=== PATIENT | male | born 1965 | race Caucasian/White ===

== ENCOUNTER 2018-03-17 21:15 | Emergency (ER) | payer OTHER ==
--- NOTE | 2018-03-17 21:24 | ER Report ---
History and Physical Time Seen By MD: 21:23 HPI/ROS CHIEF COMPLAINT: Chest pain and shortness of breath HISTORY OF PRESENT ILLNESS: This is a 52-year-old male. He has been having some chest pressure starting earlier today. It radiates to his shoulder on the left side and up into the jaw and neck on the right side. It's in the substernal area. He has a little bit of shortness of breath associated with this but no cough or fevers. This came on at rest. It doesn't really change with activity or rest. He denies any abdominal pain. He has not really felt like he is having much in the way of reflux or acid symptoms today. He has had a little bit of nausea. No problem with abdominal pain, bowel changes, or urinary changes. Allergies: Coded Allergies: No Known Drug Allergies (Unverified , 03/17/18) Home Meds Reported Medications Magnesium Oxide (Magnesium) 400 Mg Tablet 03/17/18 Multivitamin (MEN'S MULTI-VITAMIN) 1 Each Tablet, 1 EACH PO DAILY 03/17/18 Glucosamine Sulfate 2KCL (GLUCOSAMINE) 1,000 Mg Tablet, 1000 MG PO BID 03/17/18 Turmeric (CURCUMIN) 1 Gm Powder, 1 GM MC 03/17/18 Testosterone Cypionate (TESTOSTERONE CYPIONATE) 200 Mg/1 Ml Vial, 200 MG IM, VIAL 03/17/18 Famotidine (FAMOTIDINE) 20 Mg Tablet, 20 MG PO BID, TAB 03/17/18 Tadalafil (CIALIS) 5 Mg Tablet, 5 MG PO QDAY 03/17/18 Sulfamethoxazole/Trimethoprim (SULFAMETHOXAZOLE-TMP DS TABLET) 1 Each Tablet, 1 TAB PO Q12H 03/17/18 Past Medical/Surgical History History of pancreatitis and some gastroesophageal reflux disease. History of cholecystectomy and history of laminectomy. Reviewed Nurses Notes: Yes Constitutional Vital Sign - Last 24 Hours 03/17/18 03/17/18 03/17/18 03/17/18 21:20 21:21 21:30 21:45 Temp 98.5 Pulse 84 81 70 Resp 16 9 13 B/P (MAP) 169/117 (134) 169/117 170/93 (118) Pulse Ox 92 94 92 O2 Delivery Room Air 03/17/18 03/17/18 03/17/18 22:00 22:15 22:30 Pulse 72 71 Resp 13 11 B/P (MAP) 139/91 (107) 135/83 (100) Pulse Ox 90 92 Physical Exam General Appearance: The patient is alert. No acute distress. Eyes: Pupils are equal, round. No pallor, injection or icterus. ENT: Mucous membranes are moist. Normal oral mucosa. Posterior oropharynx is normal. Neck: Supple and non tender. No lymphadenopathy. Respiratory: Lungs are clear to auscultation. Cardiovascular: Regular rate and rhythm. No murmurs, gallops or rubs. Normal capillary refill. No edema. Gastrointestinal: Abdomen is soft, nontender. He does have some gurgling sounds from the esophagus when listening over the chest. Nondistended. Normal active bowel sounds. No costovertebral angle tenderness with percussion. Neurological: Alert and oriented x3. Skin: Warm and dry. No rashes. Musculoskeletal: Extremities are nontender. No chest wall tenderness. No tenderness with palpation of the spine. DIFFERENTIAL DIAGNOSIS: After history and physical exam, differential diagnosis was considered for chest pain including but not limited to myocardial ischemia, pericarditis pulmonary embolus, chest wall pain, pleural inflammation and pulmonary infectious causes. Medical Decision Making Data Points Result Diagram: 03/17/18212503/17/182125 Laboratory Hematology Test 03/17/18 21:26 Red Blood Count 5.81 M/uL (4.00-5.60) Mean Corpuscular Volume 94.4 fL (80.0-96.0) Mean Corpuscular Hemoglobin 34.3 pg (26.0-33.0) Mean Corpuscular Hemoglobin Concent 36.4 g/dL (32.0-36.0) Red Cell Distribution Width 13.5 % (11.5-14.5) Mean Platelet Volume 9.0 fL (7.2-11.1) Neutrophils (%) (Auto) 42.1 % (39.4-72.5) Lymphocytes (%) (Auto) 45.5 % (17.6-49.6) Monocytes (%) (Auto) 9.4 % (4.1-12.4) Eosinophils (%) (Auto) 2.4 % (0.4-6.7) Basophils (%) (Auto) 0.6 % (0.3-1.4) Nucleated RBC Relative Count (auto) 0.2 /100WBC Neutrophils # (Auto) 4.2 K/uL (2.0-7.4) Lymphocytes # (Auto) 4.5 K/uL (1.3-3.6) Monocytes # (Auto) 0.9 K/uL (0.3-1.0) Eosinophils # (Auto) 0.2 K/uL (0.0-0.5) Basophils # (Auto) 0.1 K/uL (0.0-0.1) Nucleated RBC Absolute Count (auto) 0.02 K/uL D-Dimer Quantitative (PE/DVT) < 0.27 ug/ml (0-0.50) Sodium Level 138 mmol/L (137-145) Potassium Level 3.9 mmol/L (3.5-5.0) Chloride Level 97 mmol/L (98-107) Carbon Dioxide Level 30 mmol/L (22-30) Blood Urea Nitrogen 17 mg/dl (9-21) Creatinine 1.70 mg/dl (0.66-1.25) Glomerular Filtration Rate Calc 42.2 Random Glucose 96 mg/dl (75-110) Calcium Level 9.8 mg/dl (8.4-10.2) Total Bilirubin 0.8 mg/dl (0.2-1.3) Aspartate Amino Transf (AST/SGOT) 49 U/L (0-35) Alanine Aminotransferase (ALT/SGPT) 50 U/L (0-56) Alkaline Phosphatase 71 U/L (0-126) Troponin I < 0.012 ng/ml Total Protein 8.3 g/dl (6.3-8.2) Albumin 4.7 g/dl (3.5-5.0) Chemistry Test 03/17/18 21:26 White Blood Count 10.0 k/uL (4.5-11.0) Red Blood Count 5.81 M/uL (4.00-5.60) Hemoglobin 19.9 g/dL (14.0-18.0) Hematocrit 54.8 % (42.0-52.0) Mean Corpuscular Volume 94.4 fL (80.0-96.0) Mean Corpuscular Hemoglobin 34.3 pg (26.0-33.0) Mean Corpuscular Hemoglobin Concent 36.4 g/dL (32.0-36.0) Red Cell Distribution Width 13.5 % (11.5-14.5) Platelet Count 179 K/uL (150-450) Mean Platelet Volume 9.0 fL (7.2-11.1) Neutrophils (%) (Auto) 42.1 % (39.4-72.5) Lymphocytes (%) (Auto) 45.5 % (17.6-49.6) Monocytes (%) (Auto) 9.4 % (4.1-12.4) Eosinophils (%) (Auto) 2.4 % (0.4-6.7) Basophils (%) (Auto) 0.6 % (0.3-1.4) Nucleated RBC Relative Count (auto) 0.2 /100WBC Neutrophils # (Auto) 4.2 K/uL (2.0-7.4) Lymphocytes # (Auto) 4.5 K/uL (1.3-3.6) Monocytes # (Auto) 0.9 K/uL (0.3-1.0) Eosinophils # (Auto) 0.2 K/uL (0.0-0.5) Basophils # (Auto) 0.1 K/uL (0.0-0.1) Nucleated RBC Absolute Count (auto) 0.02 K/uL D-Dimer Quantitative (PE/DVT) < 0.27 ug/ml (0-0.50) Glomerular Filtration Rate Calc 42.2 Calcium Level 9.8 mg/dl (8.4-10.2) Total Bilirubin 0.8 mg/dl (0.2-1.3) Aspartate Amino Transf (AST/SGOT) 49 U/L (0-35) Alanine Aminotransferase (ALT/SGPT) 50 U/L (0-56) Alkaline Phosphatase 71 U/L (0-126) Troponin I < 0.012 ng/ml Total Protein 8.3 g/dl (6.3-8.2) Albumin 4.7 g/dl (3.5-5.0) Coagulation Test 03/17/18 21:26 D-Dimer Quantitative (PE/DVT) < 0.27 ug/ml EKG/Imaging EKG Interpretation 12 lead EKG: Rhythm: normal sinus rhythm, rate 74 [place]: normal QRS: normal ST segments: normal Imaging AP CHEST 03/17/2018 9:32 PM. INDICATION: Chest Pain COMPARISON: None. FINDINGS: Lungs are well-expanded. There is no consolidation. Mild bronchial wall thickening. No pleural effusion or pneumothorax. Heart size is normal. Cholecystectomy clips. IMPRESSION: Mild airways disease. Report Dictated By: Wander Mcmullen MD at 03/17/2018 10:12 PM ED Course/Re-evaluation Clinical Indication for ER IV: IV Access ED Course Patient given aspirin 81 mg 4 chewable. Chest x-ray and EKG as noted above. Labs are negative as well. Based on the gurgling that we here over the esophagus in the chest, this is likely going to be due to his reflux symptoms. Recommended using his famotidine as well as antiacids. Decision to Disposition Date: Mar 17, 2018 Decision to Disposition Time: 22:37 Depart Departure Latest Vital Signs Vital Signs Date Time Temp Pulse Resp B/P (MAP) Pulse Ox O2 Delivery O2 Flow Rate FiO2 03/17/18 22:30 71 11 135/83 (100) 92 03/17/18 21:21 98.5 Room Air Impression: Primary Impression: Chest pain Additional Impression: Reflux esophagitis Condition: Improved Disposition: HOME OR SELF-CARE Patient Instructions: Chest Pain (ED), Gastroesophageal Reflux Disease (ED) Additional Instructions: Keep taking your antacid medication, famotidine. You can also use Maalox, TUMs or other anti-acid medications. Problem Qualifiers Primary Impression: Chest pain Chest pain type: unspecified Qualified Codes: R07.9 - Chest pain, unspecified OSKAR GUZMAN MD Mar 17, 2018 21:24
[2018-03-17] MEDS ORDERED: MULT-1287 PO (21:29)
[2018-03-17] MEDS ORDERED: FAMO-67 PO (21:29)
[2018-03-17] MEDS ORDERED: TEST200V IM (21:29)
[2018-03-17] MEDS ORDERED: TURM1POW3 MC (21:29)
[2018-03-17] MEDS ORDERED: GLUC100026 PO (21:29)
[2018-03-17] MEDS ORDERED: SULF1TAB24 PO (21:29)
[2018-03-17] MEDS ORDERED: TADA5TAB7 PO (21:29)
[2018-03-17] MEDS ORDERED: MAGN400T10 (21:29)
[2018-03-17] MEDS ORDERED: ASPIRIN 81 MG CHEW PO ONE (21:35)
--- NOTE | 2018-03-17 21:37 | EKG ---
FACILITY: [facility] PATIENT NAME: FLORENCIO RATLIFF : [id number] MR: [id number] V: [id number] EXAM DATE: ORDERING PHYSICIAN: OSKAR GUZMAN TECHNOLOGIST: MEHRAN Navarro Reason : Chest Pain Blood Pressure : / mmHG Vent. Rate : 074 BPM Atrial Rate : 074 BPM P-R Int : 152 ms QRS Dur : 080 ms QT Int : 358 ms P-R-T Axes : 047 048 016 degrees QTc Int : 397 ms Normal sinus rhythm Normal ECG No previous ECGs available Confirmed by BIJAN HOPKINS ([id number]) on 03/18/2018 6:36:12 AM Referred By: Confirmed By:BIJAN HOPKINS
[2018-03-17 21:38] LABS: PLATELET COUNT, AUTOMATED 179 K/uL (150-450)
--- NOTE | 2018-03-17 22:18 | RADIOLOGY IMAGING REPORT ---
FACILITY: [facility] PATIENT NAME: Rj Louis : 1965 MR: [id number] V: [id number] EXAM DATE: ORDERING PHYSICIAN: OSKAR GUZMAN TECHNOLOGIST: Location: [facility] [place] Patient: Rj Louis : 1965 Visit/Account:[id number] Date of Sevice: 03/17/2018 AP CHEST 03/17/2018 9:32 PM. INDICATION: Chest Pain COMPARISON: None. FINDINGS: Lungs are well-expanded. There is no consolidation. Mild bronchial wall thickening. No pleural effu [place] or pneumothorax. Heart size is normal. Cholecystectomy clips. IMPRESSION: Mild airways disease. Report Dictated By: Wander Mcmullen MD at 03/17/2018 10:12 PM Report E-Signed By: Wander Mcmullen MD at 03/17/2018 10:13 PM WSN:[id number]
[2018-03-17 22:30] VITALS: BP 135/83
== END 2018-03-17 22:51 | disposition home or self-care (01) ==
LOC: ER 21:52
DX: K21.0 Gastro-esophageal reflux disease with esophagitis (principal); R07.9 Chest pain, unspecified; R06.02 Shortness of breath
CPT/HCPCS: 71045; 82040; 82247; 82310; 82374; 82435; 82565; 82947; 84075; 84132; 84155; 84295; 84450; 84460; 84484; 84520; 85025; 85379; 93005; 99284